=== PATIENT | male | born 1970 | race Hispanic/Latino ===

== ENCOUNTER 2018-07-13 18:44 | Emergency (ER) | payer OTHER ==
[~2018-07-13] VITALS: Ht 167.6 cm; Wt 110.7 kg
--- OUTSIDE RECORDS SUMMARY | 2018-07-13 18:46 | XMS REPORT ---
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 Allergies, Adverse Reactions, Alerts This patient has no known allergies or adverse reactions. Medications This patient has no known medications. Results Test Description Test Time Test Comments Text Results Atomic Results Result Comments - MRI LOW EXT W WO CONT LT 2018-06-18 14:48:00 FAX: Seun Lovell DPM [phone] [place]: St: REG Name: BRUNA SOLANO [facility] [place] : 1970 Age/S: 47/M [address] [place] [address] Unit #: [id number] Loc: [place] [address] Phys: Seun Kirby DPM Acct: [id number] Dis Date: Status: REG CLI PHONE #: [phone] Exam Date: 06/18/2018 1045 FAX #: [phone] Reason: M79.672 PAIN IN LEFT FOOT Report Has Been Amended EXAMS: CPT CODE: [id number] [place] [address] Addendum - 06/18/2018 SIGNED 06/18/2018 ADDENDUM: [id number] MR I/MRILEWWOLT There is a typographical error in the previous report. The technique is as follows: Multi-planar, multi-sequence MR imaging of the left foot was performed using routine protocol before and after the intravenous administration of 22 mL of Dotarem gadolinium-based contrast. at 1448 Reported and signed by: Rogelio Welch M.D. Report - MRI LOW EXT W WO CONT LT, 06/18/2018 8:42 AM INDICATION: Foot pain. Peroneal tendinitis. Plantar fibromatosis. COMPARISON: None TECHNIQUE: Multi-planar, multi-sequence MR imaging of the left foot was performed using routine protocol before and after the intravenous administration of 22 mL of barium gadolinium-based contrast. . FINDINGS: . Bones: Normal marrow signal. No fracture or neoplasm. . Soft tissues: No abnormal masses or fluid collections. . Joints: Anatomic alignment of the midfoot. No bony erosions. Minimal degenerative changes at the 1st MTP joint.. . Extensor tendons: Incompletely imaged but within normal limits.. . Peroneal tendons: Incompletely imaged with trace tendon sheath fluid. An os peroneum is noted. . Flexor tendons: Incompletely imaged but within normal limits.. . Plantar fascia: The central cord of the plantar fascia is abnormal with multifocal areas of thickening and intrasubstance signal. There is nodular area approximately 2 cm from insertion measuring approximately 1 cm in length and approximately 6 mm in thickness. Slightly more distally, there is additional area of nodular thickening measuring 1.5 cm in length by 5 mm in thickness. There is no tear. PAGE 1 Signed Report (CONTINUED) FAX: Seun Lovell [facility] [phone] [place]: St: REG -- Name: BRUNA SOLANO [facility] [place] : 1970 Age/S: 47/M [address] [place] [address] Unit #: [id number] Loc: [place] [address] Phys: Seun Kirby DPM Acct: [id number] Dis Date: Status: REG CLI PHONE #: [phone] Exam Date: 06/18/2018 1045 FAX #: [phone] Reason: M79.672 PAIN IN LEFT FOOT Report Has Been Amended EXAMS: CPT CODE: [id number] [place] [address] <Continued> . Additional Comments: None. IMPRESSION: 1. Nodular areas of thickening of the central cord of plantar fascia consistent with plantar fibromatosis. SL: FADI at 1430 Reported and signed by: Rogelio Welch M.D. CC: Seun Kirby DPM Technologist: RT Denise(R)(MR) Trnscrd Date/Time/By: 06/18/2018 (1430) : By: [email or web address] Orig Print D/T: S: 06/18/2018 (6510) PAGE 2 Signed Report - MRI LOW EXT W WO CONT RT 2018-06-18 14:47:00 FAX: Seun Lovell DPM [phone] [place]: St: REG Name: BRUNA SOLANO [facility] [place] : 1970 Age/S: 47/M [address] [place] [address] Unit #: [id number] Loc: [place] [address] Phys: Seun Kirby DPM Acct: [id number] Dis Date: Status: REG CLI PHONE #: [phone] Exam Date: 06/18/2018 1046 FAX #: [phone] Reason: M72.2 PLANTAR FASCIAL FIBROMATOSIS EXAMS: CPT CODE: [id number] [place] [address] - MRI LOW EXT W WO CONT LT, 06/18/2018 8:42 AM INDICATION: Foot pain. Peroneal tendinitis. Plantar fibromatosis. COMPARISON: None TECHNIQUE: Multi-planar, multi-sequence MR imaging of the right foot was performed using routine protocol before and after the intravenous administration of 22 mL Dotarem gadolinium-based contrast. . FINDINGS: . Bones: Normal marrow signal. No fracture or neoplasm. . Soft tissues: No abnormal masses or fluid collections. . Joints: Anatomic alignment of the midfoot. No bony erosions. Areas of nodular thickening of the central cord of plantar fascia suggestive of plantar fibromatosis. . Extensor tendons: Incompletely imaged but within normal limits.. . Peroneal tendons: Incompletely imaged but within normal limits. . Flexor tendons: Incompletely imaged but within normal limits.. . Plantar fascia: Intact. There is a small area of thickening of the central cord of the plantar fascia just proximal to insertion measuring up to 5 mm in thickness by 1 cm in length. There appears to be additional subtle area of minimal nodularity more distally coronal image 18. . Additional Comments: None. IMPRESSION: 1. Nodular areas of thickening of the central cord of plantar fascia consistent with plantar fibromatosis. SL: FADI at 1447 Reported and signed by: Rogelio Welch M.D. PAGE 1 Signed Report (CONTINUED) FAX: Seun Lovell DPM [phone] [place]: St: REG Name: BRUNA SOLANO [facility] : 1970 Age/S: 47/M [address] [place] [address] Unit #: [id number] Loc: [place] [address] Phys: Seun Kirby DPM Acct: [id number] Dis Date: Status: REG CLI PHONE #: [phone] Exam Date: 06/18/2018 1046 FAX #: [phone] Reason: M72.2 PLANTAR FASCIAL FIBROMATOSIS EXAMS: CPT CODE: [id number] [place] [address] <Continued> CC: Seun Kirby DPM Technologist: RT Denise(R)(MR) Trnscrd Date/Time/By: 06/18/2018 (1447) : By: [email or web address] Orig Print D/ T: S: 06/18/2018 (0228) PAGE 2 Signed Report - MRI LOW EXT W WO CONT LT 2018-06-18 14:30:00 FAX: Seun Lovell DPM [phone] [place]: St: REG Name: BRUNA SOLANO [facility] : 1970 Age/S: 47/M [address] [place] [address] Unit #: [id number] Loc: [place] [address] Phys: Seun Kirby DPM Acct: [id number] Dis Date: Status: REG CLI PHONE #: [phone] Exam Date: 06/18/2018 1045 FAX #: [phone] Reason: M79.672 PAIN IN LEFT FOOT EXAMS: CPT CODE: [id number] [place] [address] - MRI LOW EXT W WO CONT LT, 06/18/2018 8:42 AM INDICATION: Foot pain. Peroneal tendinitis. Plantar fibromatosis. COMPARISON: None TECHNIQUE: Multi-planar, multi-sequence MR imaging of the left foot was performed using routine protocol before and after the intravenous administration of 22 mL of barium gadolinium-based contrast. . FINDINGS: . Bones: Normal marrow signal. No fracture or neoplasm. . Soft tissues: No abnormal masses or fluid collections. . Joints: Anatomic alignment of the midfoot. No bony erosions. Minimal degenerative changes at the 1st MTP joint.. . Extensor tendons: Incompletely imaged but within normal limits.. . Peroneal tendons: Incompletely imaged with trace tendon sheath fluid. An os peroneum is noted. . Flexor tendons: Incompletely imaged but within normal limits.. . Plantar fascia: The central cord of the plantar fascia is abnormal with multifocal areas of thickening and intrasubstance signal. There is nodular area approximately 2 cm from insertion measuring approximately 1 cm in length and approximately 6 mm in thickness. Slightly more distally, there is additional area of nodular thickening measuring 1.5 cm in length by 5 mm in thickness. There is no tear. . Additional Comments: None. IMPRESSION: 1. Nodular areas of thickening of the central cord of plantar fascia consistent with plantar fibromatosis. SL: FADI at 1430 Reported and signed by: Rogelio Welch M.D. PAGE 1 Signed Report (CONTINUED) FAX: Seun Lovell DPM [phone] [place]: St: REG----- Name: BRUNA SOLANO [facility] : 1970 Age/S: 47/M [address] [place] [address] Unit #: [id number] Loc: [place] [address] Phys: Seun Kirby DPM Acct: [id number] Dis Date: Status: REG CLI PHONE #: [phone] Exam Date: 06/18/2018 1045 FAX #: [phone] Reason: M79.672 PAIN IN LEFT FOOT EXAMS: CPT CODE: [id number] [place] [address] <Continued> CC: Seun Kirby DPM Technologist: RT Denise(Britni)(MR) Trnscrd Date/Time/By: 06/18/2018 (5221) : By: [email or web address] Orig Print D/T: S: 06/18/2018 (4936) PAGE 2 Signed Report MRI BRAIN WO [place] [address] Patient Name: BRUNA SOLANO MR #: [id number] : 1970 Age/Sex: 46/M Req #: [id number] Adm Physician: Ordered by: SILVIANO ANGEL MD Report #: [id number] Location: MRI Room/Bed: Procedure: [id number] MRI/MRI BRAIN WO Exam Date: 12/25/16 Exam Time: 1110 REPORT STATUS: Signed History: Headache Comparison studies: None Technique: Sagittal T2; axial DWI, FLAIR, MPGR, T1, Coronal FLAIR. Intravenous contrast: None Findings: Scalp: Normal in signal . No masses . Bone marrow: Normal in signal intensity. Extra-axial: No masses, no fluid collections. Brain sulci: Appropriate for age. Ventricles: Normal in size . No hydrocephalus . Parenchyma: No abnormal signal intensities. No masses, hemorrhage, acute or chronic vascular insults. Suprasellar region: No abnormalities. Craniocervical junction: No abnormalities. Patent foramen magnum. No Chiari one malformation. Vessels: Normal flow-voids in the arteries and sinuses. IMPRESSION: 1. No abnormalities Signed by: DR Timmy Dean M.D. on 12/25/2016 12:10 PM Dictated By: TIMMY DUMONT MD 1210 Transcribed By: RANI on 12/25/16 1210 COPY TO: SILVIANO ANGEL MD
[2018-07-13 19:54] LABS: CLARITY,URINE CLEAR (CLEAR); COLOR,URINE YELLOW (YELLOW)
[2018-07-13 19:55] LABS: BILIRUBIN,URINE NEGATIVE (NEGATIVE); KETONES,URINE NEGATIVE (NEGATIVE); LEUKOCYTE ESTERASE ,URINE NEGATIVE (NEGATIVE); NITRITE,URINE NEGATIVE (NEGATIVE); PROTEIN,URINE DIPSTICK NEGATIVE (NEGATIVE); URINE UROBILINOGEN 0.2 mg/dL (0.2 - 1)
== END 2018-07-13 23:13 | disposition home or self-care (01) ==
LOC: ER 18:44
DX: M54.5 Low back pain (principal); S39.012A Strain of muscle, fascia and tendon of lower back, initial encounter; I10 Essential (primary) hypertension; K21.9 Gastro-esophageal reflux disease without esophagitis
CPT/HCPCS: 81001; 99283